=== PATIENT | female | born 1980 | race American Indian/Alaskan Native ===

== ENCOUNTER 2021-06-03 10:48 | Emergency (ER) | payer OTHER ==
--- NOTE | 2021-06-03 11:37 | XRay Report ---
RIGHT SHOULDER 3 VIEW(S) INDICATION / CLINICAL INFORMATION: right shoulder injury COMPARISON: None available. FINDINGS: BONES / JOINT(S): No acute fracture or subluxation. No significant arthritis. SOFT TISSUES: No significant abnormality. ADDITIONAL FINDINGS: None. Signer Name: Flash Maxwell MD Signed: 06/03/2021 11:33 AM Workstation Name: [id number]
--- NOTE | 2021-06-03 11:47 | Emergency Department Report ---
ED Extremity Problem HPI - General Chief complaint: Shoulder Injury Stated complaint: TORN MUSCLE IN RT SHOULDER Time Seen by Provider: 06/03/21 11:20 Source: patient, family Mode of arrival: Ambulatory Limitations: No Limitations - History of Present Illness Initial comments: This is a 40-year-old female without any past medical history who presents to the ED today complaining of right shoulder and upper arm pain x4 days. Patient states that she was doing push-ups about 4 days ago when she felt some pain during that time. Patient states she thought nothing of it and continued working out. Patient states that the past 2 days she has been doing some lifting and moving around the house. Patient states that the past 2 days she has had worsening pain in the shoulder which is worsened with elevation of the right upper arm. She denies any other injuries, trauma, headache, chest pain, shortness of breath, loss of consciousness. MD Complaint: extremity pain Location: right History of Same: No -: Yes myalgia, Yes arthralgia Severity scale (0 -10): 6 Quality: aching Consistency: intermittent - Related Data Previous Rx's Medication Instructions Recorded Last Taken Type Cyclobenzaprine [Flexeril] 10 mg PO BID PRN #20 06/03/[address] [Francisco Yepez] 75 mg PO BID #30 tablet 06/03/21 Unknown Rx Allergies Allergy/AdvReac Type Severity Reaction Status Date / Time No Known Allergies Allergy Unverified 06/03/21 10:58 ED Review of Systems ROS: Stated complaint: TORN MUSCLE IN RT SHOULDER Other details as noted in HPI Comment: All other systems reviewed and negative ED Past Medical Hx - Past Medical History Previous Medical History?: Yes - Surgical History Past Surgical History?: Yes Hx Cholecystectomy: Yes Additional Surgical History: hemorrhoid, Emergency D&C, left 5th digit, Umbilical hernia repair with mesh placement - Medications Home Medications: Home Medications Medication Instructions Recorded Confirmed Last Taken Type Cyclobenzaprine [Flexeril] 10 mg PO BID PRN #20 06/03/[address] [Francisco Yepez] 75 mg PO BID #30 tablet 06/03/21 Unknown Rx ED Physical Exam - General Limitations: No Limitations - Head Head exam: Present: atraumatic, normocephalic, normal inspection - Eye Eye exam: Present: normal appearance Pupils: Present: normal accommodation - Extremities Exam Extremities exam: Present: normal inspection - Expanded Upper Extremity Exam Right General: Present: normal inspection Shoulder Exam: Present: normal inspection, full ROM (Pain with elevation of the shoulder.), tenderness (To palpation of the anterior right shoulder.), tenderness over AC joint. Absent: swelling, deformity, crepidus, erythema Upper Arm exam: Present: normal inspection, full ROM. Absent: tenderness, swelling Elbow exam: Present: normal inspection, full ROM. Absent: tenderness, swelling Forearm Wrist exam: Present: normal inspection, full ROM. Absent: tenderness, swelling Hand Wrist exam: Present: normal inspection, full ROM. Absent: tenderness, swelling Neuro motor exam: Present: wrist extension intact Vascular: Present: normal capillary refill. Absent: vascular compromise ED Course Vital Signs 06/03/21 11:39 Respiratory 18 Rate O2 Sat by Pulse 100 Oximetry ED Medical Decision Making - Radiology Data Radiology results: report reviewed Fluoro Time In Minutes: RIGHT SHOULDER 3 VIEW(S) INDICATION / CLINICAL INFORMATION: right shoulder injury COMPARISON: None available. FINDINGS: BONES / JOINT(S): No acute fracture or subluxation. No significant arthritis. SOFT TISSUES: No significant abnormality. ADDITIONAL FINDINGS: None. Signer Name: Flash Reddy MD Signed: 06/03/2021 11:33 AM Workstation Name: [id number] Transcribed By: SB Dictated By: FLASH REDDY MD Electronically Authenticated By: FLASH REDDY MD Signed Date/Time: 06/03/21 1133 - Medical Decision Making 40-year-old female presents to ED with myalgia of the right shoulder joint ED course: Patient received x-rays in ED. x-ray shows no acute findings Vital signs are normal patient is in no acute distress Discussed with patient follow-up with primary care physician. Discussed with patient need to follow-up with an orthopedic physician for possible MRI if pain persist. Patient placed in a sling and discharge instructions given with the referral for orthopedic. Discussed the patient and take medications as prescribed. Patient has no neurological deficit. Patient is alert and oriented 3 and understands all instructions given. Discussed drowsiness effect of Flexeril makes her drowsy and not to operate machinery while taking flexeril Critical care attestation.: If time is entered above; I have spent that time in minutes in the direct care of this critically ill patient, excluding procedure time. ED Disposition Clinical Impression: Myalgia, Arthralgia of shoulder region Disposition: HOME / SELF CARE / HOMELESS Is pt being admited?: No Does the pt Need Aspirin: No Condition: Stable Instructions: Musculoskeletal Pain, How to Use Cold Therapy, [id number], Joint Pain, [id number] Additional Instructions: Make sure to follow up with the primary care physician as discussed. Take all your medications as you've been prescribed. If you have any worsening symptoms or develop new symptoms please return to ED immediately. Prescriptions: Cyclobenzaprine [Flexeril] 10 mg PO BID PRN #20 PRN Reason: Muscle Spasm Diclofenac Dr [Voltaren ] 75 mg PO BID #30 tablet Referrals: [facility] [Provider Group] - 3-5 Days [facility] [Provider Group] - 3-5 Days Forms: Work/School Release Form(ED) Time of Disposition: 12:37
[2021-06-03 12:49] VITALS: BP 122/79
== END 2021-06-03 12:59 | disposition home or self-care (01) ==
LOC: ED 10:48
DX: M79.10 Myalgia, unspecified site (principal); M25.511 Pain in right shoulder; M25.59 Pain in other specified joint
CPT/HCPCS: 99283